=== PATIENT | female | born 1985 | race Caucasian/White ===

== ENCOUNTER 2017-04-12 15:37 | Inpatient (IN) ==
[2017-04-12 16:58] LABS: Barbiturates Screen,Urine Negative (Negative); Benzodiazepines Screen,Urine Negative (Negative); Cannabinoid Screen,Urine Negative (Negative); Opiate Screen,Urine Negative (Negative); Phencyclidine Screen,Urine Negative (Negative)
[2017-04-12 17:13] LABS: Bilirubin,Total 0.5 MG/DL (0.2-1.0); Calcium 8.7 MG/DL (8.5-10.1); Osmolality,Calculated 271.8 MOS/KG (273-304); Potassium 4.2 MMOL/L (3.5-5.1); Total Protein 7.1 G/DL (6.4-8.3)
[2017-04-12] MEDS ORDERED: ALUMINUM/MAGNES/SIMETH MAX STR 30 ML UDCUP PO PRN (17:30)
[2017-04-12 17:57] LABS: Basophils # 0.1 10*3/uL (0.0-0.2); Basophils % 0.3 % (0.0-0.8); Eosinophils % 0.2 % (0.00-10.9); Hematocrit 36.8 VOL% (35.7-47.0); Hemoglobin 12.7 GM/DL (12.0-16.0); Immature Granulocytes % 1.1 %; Immature Granulocytes Absolute 0.22 #; Lymphocytes # 4.6 10*3/uL (1.4-4.0); Lymphocytes % 23.1 % (21.3-54.2); Mean Corpuscular HGB Conc 34.5 GM/DL (32-36); Mean Corpuscular Hemoglobin 30 PG (27-34); Mean Platelet Volume 10.7 FL (9.6-12.0); Monocytes # 0.7 10*3/uL (0.11-0.8); Monocytes % 3.4 % (1.7-12.7); NRBC # 0.05 10*3/uL; Neutrophils # 14.3 10*3/uL (1.4-7.4); Neutrophils % 71.9 % (38.7-73.9); Platelet Count 559 T/CUMM (130-400); Red Blood Count 4.18 MC/CUMM (3.8-5.5); Red Cell Distribution Width 14.5 % (9.3-17.3); White Blood Count 19.9 T/CUMM (4-12)
[2017-04-12] MEDS ORDERED: BENZONATATE 100 MG CAPSULE PO PRN (17:59)
[2017-04-13] MEDS ORDERED: ONDANSETRON 4 MG/2 ML VIAL IV PRN (00:07)
[2017-04-13] MEDS ORDERED: MEPERIDINE 50 MG/1 ML VIAL IV PRN (00:07)
[2017-04-13 00:44] LABS: Basophils % 0.2 % (0.0-0.8); Eosinophils % 0.1 % (0.00-10.9); Hematocrit 37.2 VOL% (35.7-47.0); Hemoglobin 13.1 GM/DL (12.0-16.0); Immature Granulocytes % 1.3 %; Immature Granulocytes Absolute 0.27 #; Lymphocytes # 4.4 10*3/uL (1.4-4.0); Lymphocytes % 21.5 % (21.3-54.2); Mean Corpuscular HGB Conc 35.2 GM/DL (32-36); Mean Corpuscular Hemoglobin 31 PG (27-34); Mean Corpuscular Volume 87.5 FL (87-102); Monocytes # 0.8 10*3/uL (0.11-0.8); Monocytes % 3.9 % (1.7-12.7); NRBC # 0.07 10*3/uL; Neutrophils # 15.1 10*3/uL (1.4-7.4); Platelet Count 527 T/CUMM (130-400); Red Blood Count 4.25 MC/CUMM (3.8-5.5); Red Cell Distribution Width 14.4 % (9.3-17.3); White Blood Count 20.7 T/CUMM (4-12)
[2017-04-13 01:17] LABS: Albumin 2.1 G/DL (3.4-5.0); Bilirubin,Total 0.7 MG/DL (0.2-1.0); Calcium 8.7 MG/DL (8.5-10.1); Osmolality,Calculated 271.8 MOS/KG (273-304); Potassium 4.2 MMOL/L (3.5-5.1); Total Protein 7.1 G/DL (6.4-8.3)
[2017-04-13] MEDS ORDERED: ALBUTEROL 2.5 MG/3 ML NEB RESP TX PRN ×2 (01:40→15:38)
[2017-04-13] MEDS: LACTATED RINGERS 1,000 ML IV SCH ×2 (01:47→08:19)
[2017-04-13] MEDS: AMPICILLIN INJ 2,000 MG in SODIUM CHLORIDE 0.9% 50 ML IV SCH ×2 (01:50→08:20)
[2017-04-13] MEDS ORDERED: OXYTOCIN/LR 20 UNIT/1,000 ML BAG IV SCH (03:00)
[2017-04-13] MEDS ORDERED: fentaNYL 2 MCG/ROPIV 0.2% EPID 150 ML EPIDURAL SCH (08:24)
[2017-04-13] MEDS ORDERED: PROMETHAZINE 25 MG/1 ML VIAL IM ONE (08:24)
[2017-04-13] MEDS ORDERED: ePHEDrine 50 MG/ML AMP IV PRN (08:24)
[2017-04-13] MEDS ORDERED: ONDANSETRON 4 MG/2 ML VIAL IV ONE (08:24)
[2017-04-13] MEDS ORDERED: CITRIC ACID/SODIUM CITRATE 30 ML UDCUP PO ONE (08:24)
[2017-04-13] MEDS ORDERED: hydrOXYzine HCL 25 MG/1 ML VIAL IM PRN (08:24)
[2017-04-13] MEDS ORDERED: diphenhydrAMINE 50 MG/1 ML VIAL IV PRN ×2 (08:24)
[2017-04-13] MEDS ORDERED: FAMOTIDINE 20 MG/2 ML VIAL IV ONE (08:24)
[2017-04-13] MEDS ORDERED: CITRIC ACID/SODIUM CITRATE 30 ML UDCUP ONE (08:27)
[2017-04-13 10:31] LABS: Cord Arterial Blood HCO3 15.5 MMOL/L
[2017-04-13 10:34] LABS: Cord Venous Blood HCO3 15.9 MMOL/L; Cord Venous Blood PCO2 48.4 MMHG; Cord Venous Blood PO2 24.4
[2017-04-13] MEDS ORDERED: RHO(D) IMMUNE GLOBULIN 300 MCG SYRINGE IM ONE (13:11)
[2017-04-13] MEDS ORDERED: BISACODYL 10 MG SUPP RECTAL PRN (13:11)
[2017-04-13] MEDS ORDERED: HYDROCORTISONE 2.5% RECTAL CREAM 30 GM TUBE TOP PRN (13:11)
[2017-04-13] MEDS ORDERED: LANOLIN 50% CREAM 0.3 OZ TUBE TOP PRN (13:11)
[2017-04-13] MEDS ORDERED: MEASLES/MUMPS/RUBELLA VACCINE 0.5 ML VIAL SUBCUT ONE (13:11)
[2017-04-13] MEDS ORDERED: ACETAMINOPHEN 325 MG TABLET PO PRN (13:11)
[2017-04-13] MEDS ORDERED: DIPH/TET/ACEL PERT BOOSTER VACCINE 0.5 ML VIAL IM ONE (13:11)
[2017-04-13] MEDS ORDERED: BENZOCAINE 20%/MENTHOL 0.5% SPRAY 56 GM CAN TOP PRN (13:11)
[2017-04-13] MEDS ORDERED: WITCH HAZEL PADS 100/JAR TOP PRN (13:11)
[2017-04-13] MEDS ORDERED: oxyCODONE/ACETAMINOPHEN 5-325 MG TABLET PO PRN (13:11)
[2017-04-13] MEDS: IBUPROFEN 800 MG TABLET PO PRN ×2 (14:37→20:40)
[2017-04-13] MEDS: oxyCODONE/ACETAMINOPHEN 5-325 MG TABLET PO PRN (20:41)
[2017-04-13] MEDS: DOCUSATE SODIUM 100 MG CAPSULE PO SCH (20:42)
[2017-04-13] MEDS: guaiFENesin 200 MG/10 ML UDCUP PO PRN (20:42)
[2017-04-14] MEDS: guaiFENesin 200 MG/10 ML UDCUP PO PRN ×3 (02:27→17:59)
[2017-04-14] MEDS: IBUPROFEN 800 MG TABLET PO PRN ×3 (02:27→17:54)
[2017-04-14] MEDS: oxyCODONE/ACETAMINOPHEN 5-325 MG TABLET PO PRN ×3 (02:28→17:54)
[2017-04-14 05:57] LABS: Basophils # 0.1 10*3/uL (0.0-0.2); Basophils % 0.3 % (0.0-0.8); Eosinophils # 0.1 10*3/uL (0.0-0.87); Eosinophils % 0.5 % (0.00-10.9); Hematocrit 30.1 VOL% (35.7-47.0); Hemoglobin 10.4 GM/DL (12.0-16.0); Immature Granulocytes % 3.8 %; Immature Granulocytes Absolute 0.88 #; Lymphocytes # 6.6 10*3/uL (1.4-4.0); Lymphocytes % 28.2 % (21.3-54.2); Mean Corpuscular HGB Conc 34.6 GM/DL (32-36); Mean Corpuscular Hemoglobin 31 PG (27-34); Mean Corpuscular Volume 89.1 FL (87-102); Monocytes # 1.3 10*3/uL (0.11-0.8); Monocytes % 5.7 % (1.7-12.7); Neutrophils # 14.4 10*3/uL (1.4-7.4); Neutrophils % 61.5 % (38.7-73.9); Platelet Count 483 T/CUMM (130-400); Red Blood Count 3.38 MC/CUMM (3.8-5.5); Red Cell Distribution Width 14.4 % (9.3-17.3); White Blood Count 23.3 T/CUMM (4-12)
[2017-04-14 06:31] LABS: Band Neutrophils 1 % (0-10); Eosinophils 1 % (0-10); Lymphocytes 30 % (20-55); Segmented Neutrophils 64 % (50-85); Total Cells Counted 100
[2017-04-14 06:32] LABS: Giant Platelets Few; Hypochromasia 1+; Platelet Estimate Adequate
[2017-04-14] MEDS: DOCUSATE SODIUM 100 MG CAPSULE PO SCH ×2 (09:00→21:45)
[2017-04-14] MEDS: FERROUS SULFATE 325 MG TABLET PO SCH ×2 (13:26→21:45)
[2017-04-15] MEDS: oxyCODONE/ACETAMINOPHEN 5-325 MG TABLET PO PRN ×2 (00:14→07:44)
[2017-04-15] MEDS: guaiFENesin 200 MG/10 ML UDCUP PO PRN ×2 (00:31→08:08)
[2017-04-15 07:12] VITALS: BP 113/72
[2017-04-15] MEDS: IBUPROFEN 800 MG TABLET PO PRN (07:44)
[2017-04-15] MEDS: FERROUS SULFATE 325 MG TABLET PO SCH (07:45)
[2017-04-15] MEDS: DOCUSATE SODIUM 100 MG CAPSULE PO SCH (07:45)
[2017-04-15] MEDS ORDERED: INFLUENZA VIRUS VACCINE 0.5 ML SYRINGE IM ONE (09:00)
== END 2017-04-15 12:55 | disposition home or self-care (01) | DRG 560 ==
LOC: N.LDOUT 15:37 → N.LD 15:43 → N.OB 04-13 13:09
PROVIDERS: ADMIT Obstetrics & Gynecology; ATTEND Obstetrics & Gynecology